=== PATIENT | male | born 1970 | race Caucasian/White ===

== ENCOUNTER → 2017-12-30 | Outpatient (CLI) | payer BC ==
[~2017-12-30] MED LIST: ASPIRIN 81M81 MG/TA2 PO; COZAAR 50MG50 MG/TAB PO; GLUCOPHAGE500 MG/TAB PO; NORCO 325 MG-51 TAB PO; PRAVACHOL 40MG40 MG PO
== END ==
LOC: COL.RAD 12-29 13:15
DX: M75.121 Complete rotator cuff tear or rupture of right shoulder, not specified as traumatic (principal); M75.81 Other shoulder lesions, right shoulder; M75.21 Bicipital tendinitis, right shoulder; M19.011 Primary osteoarthritis, right shoulder; S43.491A Other sprain of right shoulder joint, initial encounter; S46.811A Strain of other muscles, fascia and tendons at shoulder and upper arm level, right arm, initial encounter

== ENCOUNTER 2018-08-13 02:40 | Emergency (ER) | payer BC ==
[~2018-08-13] VITALS: Ht 177.8 cm; Wt 100.0 kg
[2018-08-13 02:45] VITALS: TEMP 97.9
[2018-08-13 04:45] VITALS: BP 126/76; PULSE 81
== END 2018-08-13 04:45 | disposition home or self-care (01) ==
LOC: COL.ER 02:40
DX: S09.90XA Unspecified injury of head, initial encounter (principal); S01.81XA Laceration without foreign body of other part of head, initial encounter; E11.9 Type 2 diabetes mellitus without complications; E78.5 Hyperlipidemia, unspecified; F10.129 Alcohol abuse with intoxication, unspecified; Z98.890 Other specified postprocedural states; Z87.891 Personal history of nicotine dependence; Z79.82 Long term (current) use of aspirin; Z79.84 Long term (current) use of oral hypoglycemic drugs; W19.XXXA Unspecified fall, initial encounter; Y92.59 Other trade areas as the place of occurrence of the external cause
CPT/HCPCS: Q9967

== ENCOUNTER 2018-08-18 11:53 | Emergency (ER) | payer BC ==
[2018-08-18 12:03] VITALS: BP 136/67; PULSE 79; TEMP 98.4
== END 2018-08-18 12:06 | disposition home or self-care (01) ==
LOC: COL.ER 11:53
DX: S01.111D Laceration without foreign body of right eyelid and periocular area, subsequent encounter (principal); X58.XXXD Exposure to other specified factors, subsequent encounter

== ENCOUNTER → 2019-01-05 | Outpatient (CLI) | payer BC | LOC: COL.RAD 12:35 | DX: I86.1 Scrotal varices (principal) ==

== ENCOUNTER 2021-08-14 08:44 | Day surgery (SDC) | payer BC ==
[~2021-08-14] VITALS: Ht 175.3 cm; Wt 111.6 kg
[2021-08-14] MEDS ORDERED: FLOMAX 0.40.4 MG/CAP PO (09:08)
[2021-08-14] MEDS ORDERED: COZAAR 50MG50 MG/TAB PO (09:08)
[2021-08-14 09:17] VITALS: BP 156/90; PULSE 71; TEMP 97.8
[2021-08-14 10:45] VITALS: BP 109/77; PULSE 76
--- NOTE | 2021-08-14 10:45 | NUR ---
Pt to GI [facility] 3 via cart from ENDO. Pt awake and alert. Pt ambulates to recliner with stand by assistance. Pt denies pain or nausea. Muffin and soda given per pt request. Will continue to monitor. Call light within reach.
[2021-08-14 11:00] VITALS: BP 121/71; PULSE 69
--- NOTE | 2021-08-14 11:00 | NUR ---
Pt tolerating food and fluids without difficulties. Pt denies needs. Call light within reach.
[2021-08-14 11:15] VITALS: BP 121/72; PULSE 71
--- NOTE | 2021-08-14 11:15 | NUR ---
Discharge instructions reviewed. Pt voices understanding. IV site discontinued with all parts intact. Pt up to dress. Call light within reach.
--- NOTE | 2021-08-14 11:30 | NUR ---
Pt escorted to private car via wheel chair. Pt accompanied home by his .
== END 2021-08-14 11:30 | disposition home or self-care (01) ==
LOC: SDCO 08:44
DX: Z12.11 Encounter for screening for malignant neoplasm of colon (principal); D12.5 Benign neoplasm of sigmoid colon; K57.30 Diverticulosis of large intestine without perforation or abscess without bleeding; I10 Essential (primary) hypertension; E11.9 Type 2 diabetes mellitus without complications; E66.9 Obesity, unspecified; G47.33 Obstructive sleep apnea (adult) (pediatric); Z99.89 Dependence on other enabling machines and devices; Z79.82 Long term (current) use of aspirin; Z79.84 Long term (current) use of oral hypoglycemic drugs; Z79.899 Other long term (current) drug therapy
CPT/HCPCS: J2704; J7030